=== PATIENT | male | born 1985 | race Caucasian/White ===

== ENCOUNTER 2021-08-22 23:19 | Emergency (ER) | payer OTHER ==
[2021-08-22 23:41] VITALS: BP 114/69; PULSE 65; TEMP 98.1; BMI 22.8
[2021-08-23] MEDS ORDERED: KETOROLAC TROMETHAMINE 30 MG/1 ML VIAL IM ONE (00:09)
[2021-08-23] MEDS ORDERED: KETOROLAC TROMETHAMINE 30 MG/1 ML VIAL ONE (00:28)
== END 2021-08-23 01:38 | disposition home or self-care (01) ==
LOC: JER 23:19
PROC: 3E023GC Introduction of Other Therapeutic Substance into Muscle, Percutaneous Approach (ICD-10-PCS; principal; 2021-08-22)
DX: M70.22 Olecranon bursitis, left elbow (principal)
CPT/HCPCS: 73070-TC-LT-FY; 99284-25

== ENCOUNTER 2021-08-24 14:29 | Inpatient (IN) | payer OTHER ==
[2021-08-24] MEDS ORDERED: ACETAMINOPHEN 1000 MG/100 ML BAG IVPB ONE ×2 (15:43→22:11)
[2021-08-24] MEDS ORDERED: CEFTRIAXONE 1 GM in DEXTROSE 5%-WATER - 100 ML IVPB ONE (15:44)
[2021-08-24] MEDS ORDERED: LACTATED RINGERS SOLUTION 1,000 ML/1,000 ML INFUS.BAG IV SCH (15:45)
[2021-08-24] MEDS ORDERED: VANCOMYCIN/WATER 1,250 MG/250 ML BAG IVPB ONE (15:46)
[2021-08-24] MEDS ORDERED: CEFTRIAXONE 1 GM/50 ML BAG ONE (15:46)
[2021-08-24] MEDS ORDERED: VANCOMYCIN 1 GRAM (PRE-DOCKED) 1,000 MG/250 ML BAG IVPB ONE (15:46)
[2021-08-24] MEDS ORDERED: ACETAMINOPHEN INJECTION 100 ML IVPB ONE (16:09)
[2021-08-24] MEDS ORDERED: VANCOMYCIN/WATER 1250 MG 1,250 MG/250 ML BAG IVPB ONE (16:09)
[2021-08-24 16:38] LABS: BASO % 0.2 % (0-2.0); EOS % 0.7 % (0-4.5); HEMATOCRIT 38.1 % (35.4-49); HEMOGLOBIN 12.6 GM/dL (11.7-16.9); LYMPH % 5.2 % (8-40); MCH 29.2 pg (25.7-33.7); MCHC 33.1 g/dl (32.0-35.9); MEAN CELL VOLUME 88.3 fl (80-96); MEAN PLT VOLUME 8.3 fl (7.5-11.1); MONO % 6.8 % (3.8-10.2); NEUT % 87.1 % (42.8-82.8); PLATELET COUNT 311 10^3/uL (134-434); RBC 4.32 M/mm3 (4.00-5.60); RDW 13.6 % (11.9-15.9); WHITE BLOOD COUNT 14.8 K/mm3 (4.0-10.0)
[2021-08-24 16:52] LABS: INR 1.41 (0.83-1.09); PROTHROMBIN TIME (PATIENT) 16.3 SEC (9.7-13.0)
[2021-08-24 16:55] LABS: ACTIVATED PTT 27.9 SECONDS (25.2-36.5)
[2021-08-24 16:57] LABS: CALCIUM 9.1 mg/dL (8.5-10.1)
[2021-08-24 16:58] LABS: ALBUMIN 3.7 g/dl (3.4-5.0); BLOOD UREA NITROGEN 13.5 mg/dL (7-18)
[2021-08-24 17:01] LABS: CREATININE 0.9 mg/dL (0.55-1.3)
[2021-08-24 17:03] LABS: BILIRUBIN,TOTAL 0.8 mg/dL (0.2-1)
[2021-08-24] MEDS ORDERED: ACETAMINOPHEN 325 MG TABLET (FP) PO PRN (17:15)
[2021-08-24] MEDS ORDERED: oxyCODONE HCL 5 MG TABLET PO PRN (17:15)
[2021-08-24 17:23] LABS: ERYTHROCYTE SEDIMENTATION RATE 25 mm/hr (0-10)
[2021-08-24 17:54] LABS: MAGNESIUM 2.3 mg/dL (1.8-2.4)
[2021-08-24 17:58] LABS: PHOSPHOROUS 2.6 mg/dL (2.5-4.9)
[2021-08-24 22:17] VITALS: BMI 23.6
[2021-08-24] MEDS: IBUPROFEN 400 MG TABLET (FP) PO SCH (22:29)
[2021-08-24 23:03] LABS: BF WBC & OTHER NUCLEATED CELLS 32313 /mm3
[2021-08-24 23:42] LABS: BODY FLUID MACROPHAGES 5 %; BODY FLUID MONOCYTE 1 %
[2021-08-25] MEDS: IBUPROFEN 400 MG TABLET (FP) PO SCH (06:44)
[2021-08-25] MEDS: IBUPROFEN 800 MG/8 ML IJ IVPB SCH ×3 (08:38→20:33)
[2021-08-25 10:28] LABS: BASO % 0.3 % (0-2.0); EOS % 0.8 % (0-4.5); HEMATOCRIT 35.3 % (35.4-49); HEMOGLOBIN 11.7 GM/dL (11.7-16.9); LYMPH % 7.6 % (8-40); MEAN CELL VOLUME 87.9 fl (80-96); MEAN PLT VOLUME 7.7 fl (7.5-11.1); MONO % 7.3 % (3.8-10.2); PLATELET COUNT 266 10^3/uL (134-434); RBC 4.01 M/mm3 (4.00-5.60); RDW 13.6 % (11.9-15.9); WHITE BLOOD COUNT 12.7 K/mm3 (4.0-10.0)
[2021-08-25 10:30] LABS: ALBUMIN 3.3 g/dl (3.4-5.0); BLOOD UREA NITROGEN 7.6 mg/dL (7-18); CALCIUM 8.8 mg/dL (8.5-10.1)
[2021-08-25 10:33] LABS: CREATININE 0.7 mg/dL (0.55-1.3)
[2021-08-25 10:35] LABS: BILIRUBIN,TOTAL 0.5 mg/dL (0.2-1); TOT PROT 6.1 g/dl (6.4-8.2)
[2021-08-25] MEDS ORDERED: VANCOMYCIN 1 GM in D5W (PRE-DOCKED) 1,000 MG/250 ML IVPB SCH (11:30)
[2021-08-25] MEDS ORDERED: PIPERACILLIN/TAZOB 3.375 GM 3.375 GM in DEXTROSE 5%-WATER - 50 ML IVPB SCH (11:30)
[2021-08-25] MEDS ORDERED: VANCOMYCIN/WATER FOR INJ (PEG) 1,000 MG/200 ML BAG IVPB SCH (11:45)
[2021-08-25] MEDS ORDERED: DEXTROSE 5%-WATER - 50 ML IVPB ONE (11:50)
[2021-08-25] MEDS ORDERED: PIPERACILLIN/TAZOBACTAM 3.375 GM VIAL IVPB ONE (11:50)
[2021-08-25] MEDS: ENOXAPARIN NA (PORCINE) 40 MG/0.4 ML DISP.SYRIN SQ SCH (15:16)
[2021-08-25] MEDS: VANCOMYCIN/WATER 1250 MG 1,250 MG/250 ML BAG IVPB SCH (23:18)
[2021-08-26] MEDS: IBUPROFEN 800 MG/8 ML IJ IVPB SCH (01:59)
[2021-08-26 09:03] LABS: BASO % 0.3 % (0-2.0); EOS % 3.1 % (0-4.5); HEMATOCRIT 35.4 % (35.4-49); LYMPH % 13.8 % (8-40); MCH 29.7 pg (25.7-33.7); MCHC 33.9 g/dl (32.0-35.9); MEAN CELL VOLUME 87.6 fl (80-96); MEAN PLT VOLUME 7.8 fl (7.5-11.1); MONO % 8.7 % (3.8-10.2); NEUT % 74.1 % (42.8-82.8); PLATELET COUNT 275 10^3/uL (134-434); RBC 4.05 M/mm3 (4.00-5.60); RDW 13.3 % (11.9-15.9); WHITE BLOOD COUNT 7.6 K/mm3 (4.0-10.0)
[2021-08-26] MEDS ORDERED: DEXTROSE 5%-WATER 100 ML IVPB ONE (09:36)
[2021-08-26] MEDS: CEFTRIAXONE 2 GM in DEXTROSE 5%-WATER 100 ML IVPB SCH (09:44)
[2021-08-26] MEDS: ENOXAPARIN NA (PORCINE) 40 MG/0.4 ML DISP.SYRIN SQ SCH (09:45)
[2021-08-26 10:23] LABS: ALBUMIN 3.2 g/dl (3.4-5.0)
[2021-08-26 10:24] LABS: CALCIUM 8.7 mg/dL (8.5-10.1)
[2021-08-26 10:25] LABS: BLOOD UREA NITROGEN 9.6 mg/dL (7-18); MAGNESIUM 2.3 mg/dL (1.8-2.4)
[2021-08-26 10:28] LABS: PHOSPHOROUS 3.4 mg/dL (2.5-4.9)
[2021-08-26 10:29] LABS: TOT PROT 6.1 g/dl (6.4-8.2)
[2021-08-26 10:30] LABS: BILIRUBIN,TOTAL 0.4 mg/dL (0.2-1)
[2021-08-26 10:53] LABS: CREATININE 0.7 mg/dL (0.55-1.3)
[2021-08-26] MEDS: VANCOMYCIN/WATER 1250 MG 1,250 MG/250 ML BAG IVPB SCH ×2 (11:43→23:06)
[2021-08-27 08:55] LABS: BASO % 0.5 % (0-2.0); EOS % 2.6 % (0-4.5); HEMOGLOBIN 12.4 GM/dL (11.7-16.9); LYMPH % 16.6 % (8-40); MCH 29.2 pg (25.7-33.7); MCHC 33.5 g/dl (32.0-35.9); MEAN CELL VOLUME 87.4 fl (80-96); MEAN PLT VOLUME 7.4 fl (7.5-11.1); NEUT % 72.3 % (42.8-82.8); PLATELET COUNT 315 10^3/uL (134-434); RBC 4.24 M/mm3 (4.00-5.60); RDW 13.5 % (11.9-15.9)
[2021-08-27 09:44] LABS: ALBUMIN 3.3 g/dl (3.4-5.0); CALCIUM 8.7 mg/dL (8.5-10.1); MAGNESIUM 2.2 mg/dL (1.8-2.4)
[2021-08-27] MEDS ORDERED: DEXTROSE 5%-WATER 100 ML IVPB ONE (09:45)
[2021-08-27 09:47] LABS: CREATININE 0.7 mg/dL (0.55-1.3); PHOSPHOROUS 4.9 mg/dL (2.5-4.9)
[2021-08-27 09:48] LABS: TOT PROT 6.4 g/dl (6.4-8.2)
[2021-08-27 09:49] LABS: BILIRUBIN,TOTAL 0.4 mg/dL (0.2-1)
[2021-08-27] MEDS: CEFTRIAXONE 2 GM in DEXTROSE 5%-WATER 100 ML IVPB SCH (10:11)
[2021-08-27] MEDS: ENOXAPARIN NA (PORCINE) 40 MG/0.4 ML DISP.SYRIN SQ SCH (10:12)
[2021-08-27] MEDS: VANCOMYCIN/WATER 1250 MG 1,250 MG/250 ML BAG IVPB SCH (14:38)
[2021-08-28] MEDS: VANCOMYCIN/WATER 1250 MG 1,250 MG/250 ML BAG IVPB SCH (01:15)
[2021-08-28 09:07] LABS: BASO % 0.4 % (0-2.0); EOS % 3.2 % (0-4.5); HEMATOCRIT 36.2 % (35.4-49); HEMOGLOBIN 12.7 GM/dL (11.7-16.9); LYMPH % 18.8 % (8-40); MCH 30.4 pg (25.7-33.7); MEAN CELL VOLUME 86.7 fl (80-96); MEAN PLT VOLUME 7.1 fl (7.5-11.1); MONO % 8.2 % (3.8-10.2); NEUT % 69.4 % (42.8-82.8); PLATELET COUNT 341 10^3/uL (134-434); RBC 4.17 M/mm3 (4.00-5.60); RDW 13.4 % (11.9-15.9); WHITE BLOOD COUNT 6.8 K/mm3 (4.0-10.0)
[2021-08-28] MEDS: ENOXAPARIN NA (PORCINE) 40 MG/0.4 ML DISP.SYRIN SQ SCH (09:54)
[2021-08-28 10:01] LABS: ALBUMIN 3.3 g/dl (3.4-5.0); CALCIUM 8.8 mg/dL (8.5-10.1); MAGNESIUM 2.3 mg/dL (1.8-2.4)
[2021-08-28 10:03] LABS: CREATININE 0.7 mg/dL (0.55-1.3)
[2021-08-28 10:04] LABS: PHOSPHOROUS 4.5 mg/dL (2.5-4.9)
[2021-08-28 10:05] LABS: BILIRUBIN,TOTAL 0.4 mg/dL (0.2-1); TOT PROT 6.3 g/dl (6.4-8.2)
[2021-08-28] MEDS: CEFAZOLIN 2 GM in DEXTROSE 5%-WATER - 100 ML IVPB SCH ×2 (11:29→18:56)
[2021-08-28 22:05] VITALS: PULSE 58
[2021-08-29] MEDS: CEFAZOLIN 2 GM in DEXTROSE 5%-WATER - 100 ML IVPB SCH ×2 (01:02→11:46)
[2021-08-29 07:39] VITALS: BP 116/63; TEMP 97.9
[2021-08-29 09:40] LABS: BASO % 0.5 % (0-2.0); EOS % 3.1 % (0-4.5); HEMATOCRIT 36.3 % (35.4-49); HEMOGLOBIN 12.9 GM/dL (11.7-16.9); LYMPH % 21.5 % (8-40); MCH 30.5 pg (25.7-33.7); MCHC 35.6 g/dl (32.0-35.9); MEAN CELL VOLUME 85.8 fl (80-96); MEAN PLT VOLUME 6.9 fl (7.5-11.1); MONO % 9.6 % (3.8-10.2); NEUT % 65.3 % (42.8-82.8); PLATELET COUNT 345 10^3/uL (134-434); RBC 4.23 M/mm3 (4.00-5.60); RDW 13.3 % (11.9-15.9); WHITE BLOOD COUNT 5.8 K/mm3 (4.0-10.0)
[2021-08-29 10:06] LABS: ALBUMIN 3.5 g/dl (3.4-5.0); BILIRUBIN,TOTAL 0.3 mg/dL (0.2-1); CREATININE 0.7 mg/dL (0.55-1.3)
[2021-08-29 10:07] LABS: CALCIUM 9.2 mg/dL (8.5-10.1); MAGNESIUM 2.4 mg/dL (1.8-2.4)
[2021-08-29 10:08] LABS: TOT PROT 6.8 g/dl (6.4-8.2)
[2021-08-29 10:09] LABS: PHOSPHOROUS 4.1 mg/dL (2.5-4.9)
[2021-08-29] MEDS: ENOXAPARIN NA (PORCINE) 40 MG/0.4 ML DISP.SYRIN SQ SCH (11:54)
== END 2021-08-29 14:21 | disposition home health service (06) | DRG 558 ==
LOC: JER 14:29 → JERFT 14:29 → JERBED 16:43 → J8W 20:46
PROVIDERS: ADMIT Internal Medicine; ATTEND Internal Medicine
PROC: 05HB33Z Insertion of Infusion Device into Right Basilic Vein, Percutaneous Approach (ICD-10-PCS; principal; 2021-08-29)
PROC: B51MZZA Fluoroscopy of Right Upper Extremity Veins, Guidance (ICD-10-PCS; 2021-08-29)
DX: M70.22 Olecranon bursitis, left elbow (principal); L03.114 Cellulitis of left upper limb; D72.829 Elevated white blood cell count, unspecified
CPT/HCPCS: 36415; 36569; 71045-TC-FY; 77001-TC-FY; 80053; 82550; 83605; 83735; 84100; 85025; 85610; 85651; 85730; 86140; 86850; 86900; 86901; 87040; 87070; 87075; 87186; 87205; 89060; 93005; 93010; 99285-25; C1751; C9803-CS; U0003; U0005